=== PATIENT | male | born 1950 | race Caucasian/White ===

== ENCOUNTER 2022-05-07 07:02 | Emergency (ER) | payer MEDICARE, SELFPAY ==
[2022-05-07 07:35] VITALS: BP 143/107; PULSE 78; RESP 16; TEMP 36.2; O2SAT 98; BMI 24.4
--- NOTE | 2022-05-07 07:46 | ED.RECABL ---
HPI - Recheck/Abnormal Lab/Rx General Chief Complaint: Recheck/Abnormal Lab/Rx Stated Complaint: post op needs stitches removed Time Seen by Provider: 05/07/22 07:09 Source: patient Mode of arrival: Family Vehicle History of Present Illness HPI narrative: 71-year-old male nonsmoker without significant chronic medical history presents requesting suture removal. He had what sounds like a lipoma removed in a outpatient setting a week or 2 ago and was told he could get sutures removed where he chose. He denies any fever chills, pain at the incision site, drainage or bleeding. He is otherwise well and free of complaint Related Data Allergies Allergy/AdvReac Type Severity Reaction Status Date / Time No Known Drug Allergies Allergy Verified 05/07/22 07:43 Review of Systems Review of Systems Narrative: GENERAL: Denies chills, fatigue, malaise, fever, sweats. HEENT: Denies sinus pain, ear pain, sore throat, difficulty swallowing, dizziness. RESPIRATORY: Denies dyspnea, cough, wheezing, hemoptysis, sputum. CARDIOVASCULAR: Denies chest pain, palpitations, orthopnea, edema, GASTROINTESTINAL: Denies nausea, vomiting, abdominal pain, diarrhea, constipation, melena. : Denies dysuria, frequency, incontinence, hematuria, urinary retention. MUSCULOSKELETAL: denies weakness, joint pain, or bony pain SKIN: See HPI NEUROLOGIC: Denies weakness, headache, numbness, change in speech, confusion, seizures, incoordination. PSYCHIATRIC: No concerning psychosocial issues. 12 point review of systems is negative except for those stated above Patient History Social History Smoking Status: Never smoker Smoking Status: Never smoker alcohol intake frequency: 0-2 drinks per day Substance Use Type: does not use Exam Narrative Exam Narrative: GEN: AOx3 and in no obvious EYES: Pupils are equal, round, and reactive to light and accommodation. Extraoccular muscles are intact bilaterally. There is no subconjunctival hemorrhage or exudate. CHEST: Lungs are clear to auscultation bilaterally and free of wheezes, rales, or rhonchi. Heart rate is regular rhythm, there are no murmurs, clicks, rubs, or gallops. There is no chest wall tenderness. ABD: Abdomen is soft and nontender. There is no guarding or rebound. Bowel sounds are normal in all 4 quadrants. There is no mass or organomegaly. EXT: Full painless ROM of all extremities with no loss of sensation or strength. SKIN: Incision on left upper back clean, dry and intact, no dehiscence, suture appropriate for removal by nursing Warm, pink, and dry. No erythema or rash Initial Vital Signs Initial Vital Signs: Vital Signs Temperature 97.1 F L 05/07/22 07:35 Pulse Rate 78 05/07/22 07:35 Respiratory Rate 16 05/07/22 07:35 Blood Pressure 143/107 H 05/07/22 07:35 Pulse Oximetry 98 05/07/22 07:35 Oxygen Delivery Method 05/07/22 07:35 Course Vital Signs Vital signs: Vital Signs - 8 hr 05/07/22 07:35 Temperature 97.1 F L Pulse Rate 78 Respiratory Rate 16 Blood Pressure 143/107 H Pulse Oximetry 98 Oxygen Delivery Method Room Air MDM - Recheck/Abnormal Lab/Rx MDM Narrative Medical decision making narrative: 71-year-old male without significant comorbidities presents asymptomatic requesting suture removal. He had a lipoma removed 1-2 weeks ago and a running suture placed. There is no redness, warmth or dehiscence. Sutures are appropriate for removal, done so by nursing. No imaging, labs or further workup necessary. Discharge Plan Departure Patient Disposition: Home Clinical Impression: Encounter for wound re-check, Encounter for removal of sutures Instructions: DI for Suture Removal Activity Restrictions/Additional Instructions: There is no evidence of an emergent or life threatening illness at this time, but follow up with your doctor in 1-2 days is recommended nonetheless to continue to rule out serious underlying causes of your symptoms. Please call the office for an appointment. Please return to the Emergency Department for any worsening or persistent symptoms. Please take medications as directed. Referrals: Doctor Lozada MD [Primary Care Provider] - Stand Alone Forms: Patient Portal/API
--- NOTE | 2022-05-07 07:57 | PC.NURSE ---
stitches removed without diffiuclty. site with no bleeding. healing well. pt declined a dressing on top of it, Dr. Garsia assessed.
== END 2022-05-07 07:58 | disposition home or self-care (01) ==
PROVIDERS: Emergency Provider Emergency Medicine
DX: Z48.1 Encounter for planned postprocedural wound closure (principal)
CPT/HCPCS: 99281